=== PATIENT | male | born 1995 | race Caucasian/White ===

== ENCOUNTER 2019-02-11 09:09 | Day surgery (SDC) | payer BC, OTHER ==
[2019-02-11] VITALS (15 sets, daily range): BP systolic 120–140; BP diastolic 60–79; PULSE 58–88; RESP 10–23; Ht 165.1 cm; Wt 50.8 kg
[~2019-02-11] VITALS: Ht 165.1 cm; Wt 50.8 kg
[~2019-02-11 09:09] MED LIST: CEFAZOLIN 2 GM/50 ML (PMX) 50 ML IVPB ONE; SOD CHLORIDE 0.9% 1,000 ML IV SCH
[2019-02-11] MEDS ORDERED: LIDOCAINE 1% (MPF) 30 ML INJ ONE (13:51)
[2019-02-11] MEDS ORDERED: POLYMYXIN/BACITRACIN 1L IRRIG ONE (13:51)
--- NOTE | 2019-02-11 13:51 | PREAC ---
Date/Time of Note Date/Time of Note DATE: 02/11/19 TIME: 13:50 Anesthesia Eval and Record Evaluation Time Pre-Procedure Interview DATE: 02/11/19 TIME: 13:50 Age 24 Sex male NPO: 8 hrs Preoperative diagnosis Left inguinal hernia Planned procedure Open hernia repair with mesh Past Medical History Past Medical History: Includes Recreational drugs: Marijuana Surgery & Anesthesia Issues No known issue Meds Anticoagulation: No Beta Rebecca within 24 hr: No Reason Beta Rebecca not given: Pt. not on B-Rebecca No Active Prescriptions or Reported Meds Current Medications Sodium Chloride 1,000 ml @ 75 mls/hr [id number] IV ; Start 02/11/19 at 09:00; Stop 02/11/19 at 22:19 Meds reviewed: Yes Allergies Coded Allergies: No Known Drug Allergies (Unverified Allergy, Unknown, 02/11/19) Allergies Reviewed: Yes Labs/Studies Labs Reviewed: Reviewed by anesthesiologist test: N/A Pre-procedure Exam Last vitals Vital Signs Date Temp Pulse Resp B/P (MAP) Pulse Ox O2 O2 Flow FiO2 Time Delivery Rate 02/11/19 98.3 78 16 120/60 100 Room Air 09:44 (80) Airway: Adequate mouth opening Mallampati: Mallampati I Teeth: Normal Lung: Normal Heart: Normal ASA Physical Status ASA physical status: 2 Emergency: None Planned Anesthetic General/MAC: ETT, LMA Planned Pain Management Parenteral pain med Pre-operative Attestations Prior to commencing anesthesia and surgery, the patient was re-evaluated, there was verification of: *The patient's identity *The results of appropriate recent lab work and preoperative vital signs *The above evaluation not changing prior to induction *Anesthetic plan, risk benefits, alternative and complications discussed with patient/family; questions answered; patient/family understands, accepts and wishes to proceed. JARAD CASTAÑEDA MD February 11, 2019 13:51
[2019-02-11] MEDS ORDERED: MEPERIDINE 100 MG INJ ONE (13:56)
[2019-02-11] MEDS ORDERED: ROCURONIUM 50 MG INJ ONE (13:56)
[2019-02-11] MEDS ORDERED: SUCCINYLCHOLINE CHLORIDE 100 MG/5 ML SYG IV ONE (13:56)
[2019-02-11] MEDS ORDERED: NEOSTIGMINE 3 MG/3 ML SYRINGE ONE (13:56)
[2019-02-11] MEDS ORDERED: PROPOFOL 20 ML ONE (13:56)
[2019-02-11] MEDS ORDERED: LIDOCAINE 2% (SDV) 5 ML INJ ONE (13:56)
[2019-02-11] MEDS ORDERED: GLYCOPYRROLATE 0.4 MG INJ ONE (13:56)
[2019-02-11] MEDS ORDERED: LIDOCAINE 1% (MDV) 20 ML INJ INJ ONE (14:00)
[2019-02-11] MEDS ORDERED: BUPIVACAINE 0.5%/EPI (SDV) 30 ML INJ INJ ONE (14:00)
[2019-02-11] MEDS ORDERED: CEFAZOLIN 1 GM INJ ONE (14:17)
[2019-02-11] MEDS ORDERED: BUPIVACAINE 0.25%/EPI (SDV) 30 ML INJ ONE (14:36)
--- NOTE | 2019-02-11 15:55 | OPR ---
Date/Time of Note Date/Time of Note DATE: 02/11/19 TIME: 15:52 Operative Report Preoperative Diagnosis Left inguinal hernia Postoperative Diagnosis Indirect left inguinal hernia Operation/Procedure Performed Left inguinal hernia repair with mesh Excision of spermatic cord lesion, lipoma Surgeon see signature line [employer] None Anesthesia Type: general Estimated Blood Loss: minimal Transfusion none Specimen Lipoma of the cord Grafts/Implants none Complications none Pt Condition Post Procedure: stable Disposition: PACU Indications Patient presented with a large lump in the left groin which was diagnosed as a reducible inguinal hernia causing significant pain discomfort and limitations of physical activity. For therapeutic relief he will undergo inguinal hernia repair. Prior to surgery risks and benefits including bleeding, infection, possible recurrence, history of chronic pain, and potential for ejaculatory pain was all discussed and informed consent was obtained. Procedure Description The patient was laid supine on the operating room table. Venodyne boots were applied. Timeout was conducted. Antibiotics were administered. The groin was prepped and draped in sterile manner. A 5 cm incision was made along the skin lines 2[address] distally from the anterior superior iliac spine to the patient's pubic tubercle on the right side. The incision was made with a scalpel and then deepened with cautery through Camper's and Effie's fascia until the external oblique aponeurosis was encountered. A preet was made along the center of the external oblique upon neurosis with the blade and thereafter the Metzenbaum scissors were used to open the external ring from the pubic tubercle up towards the anterior superior iliac spine. The ilioinguinal nerve was identified and moved out of the operative field sway. The surgeon then used blunt dissection with a sponge stick to isolate the cord structures from surrounding fascia and thereafter encircled the cord structures with a [place] drain. The Ning drain was used to retract the cord structures and the ileal inguinal nerve out of the operative field. The cord was examined and along the lipoma was noted. Excision of lipoma of the cord was carried out. The hernia sac was then identified and noted to be adherent to the cremasteric fibers and the spermatic cord. Using electrocautery the hernia sac was dissected away from the structures. The hernia sac was thereafter opened and inspected there was no bowel or anything suspicious inside it. All hernia sac content was reduced back into the peritoneum and thereafter high ligation of the sac was carried out with a 0 silk suture and the hernia sac was reduced into the peritoneal cavity. The fascia was then inspected and dressed lateral to the epigastric vessels a indirect hernia defect was identified. The fascial defect was closed with interrupted 0 Vicryl sutures and reinforced with a Prolene plug mesh. Interrupted Vicryl sutures were used to affix the petals of the plug to the inner surface of the conjoint tendon at the area of the fascial defect. Once the fascial defect was closed patch mesh was brought onto the field. This was likewise a Bard Prolene mesh and it was cut to appropriate size. The medial edge of the mesh was affixed to the patient's right pubic periosteum about 1 cm to the area of the tubercle. Afterwards a running 0 Vicryl suture was used to affix the superior edge of the mesh to the patient's conjoint tendon from the pubic tubercle laterally toward the anterior superior iliac spine. A second Vicryl suture was then used to affix the patch mesh to the shelving edge of the ileal inguinal ligament from the area of the pubic tubercle toward the anterior superior iliac spine using running 0 Vicryl suture. The spermatic cord was placed in between the 2 fish tails of the patch mesh and the 2 fishtails were thereafter affixed to each other using an interrupted suture taking care to ensure there is no impingement upon the spermatic cord. The wound was then irrigated with saline. The cord structures and ilioinguinal nerve were then placed back into their anatomic position. The external oblique fascia was thereafter reapproximated using running 0 Vicryl suture. The subcutaneous tissue was then reapproximated using 2-0 Vicryl sutures. The skin was then closed with 4-0 Monocryl and Dermabond dressing was applied after wet and dry dressings were applied to the wound. At the end of the procedure I confirmed that the patient's testicles are in the appropriate position. The patient was after weaned from anesthesia and disposition to the postanesthesia care unit in stable condition. All instrument and needle and sponge counts were correct at the end of the procedure 2. SHAINA MANLEY February 11, 2019 15:55
[2019-02-11] MEDS ORDERED: HYDROCODONE/APAP (5/325) TAB PO PRN (16:00)
[2019-02-11] MEDS: HYDROmorphONE 1 MG/5 ML IV SYRINGE IV PRN ×2 (16:21→16:27)
[2019-02-11] MEDS ORDERED: METOCLOPRAMIDE 10 MG INJ IV PRN (16:30)
[2019-02-11] MEDS ORDERED: FENTAnyl 50 MCG/ML VIAL IV PRN (16:30)
[2019-02-11] MEDS ORDERED: OXYCODONE/ACETAMINOPHEN (5/325) TAB PO PRN (16:30)
[2019-02-11] MEDS ORDERED: ONDANSETRON 4 MG INJ IV PRN (16:30)
--- NOTE | 2019-02-11 17:21 | PAC ---
Date/Time of Note Date/Time of Note DATE: 02/11/19 TIME: 17:20 Post-Anesthesia Notes Post-Anesthesia Note Last documented vital signs Vital Signs Date Temp Pulse Resp B/P (MAP) Pulse Ox O2 O2 Flow FiO2 Time Delivery Rate 02/11/19 58 16 128/69 97 Room Air 16:57 (88) 02/11/19 98.0 15:57 Activity: WNL Respiratory function: WNL Cardiovascular function: WNL Mental status: Baseline Pain reasonably controlled: Yes Hydration appropriate: Yes Nausea/Vomiting absent: Yes Comments BT: 98.5 JARAD CASTAÑEDA MD February 11, 2019 17:21
== END 2019-02-11 17:34 | disposition home or self-care (01) ==
LOC: SDS 09:09
PROVIDERS: ATTEND Surgery Surgical Critical Care
DX: K40.90 Unilateral inguinal hernia, without obstruction or gangrene, not specified as recurrent (principal); D17.6 Benign lipomatous neoplasm of spermatic cord
CPT/HCPCS: 49505; 55520; C1781; J0690; J1170; J2175; J2710; Z7512; Z7610; 88302